=== PATIENT | female | born 1995 | race Caucasian/White ===

== ENCOUNTER 2017-04-22 03:14 | Emergency (ER) | payer OTHER ==
[2017-04-22] MEDS ORDERED: IBUPROFEN 200 MG TAB PO ONE (04:44)
--- NOTE | 2017-04-22 06:26 | EDPHY ---
H & P Stated Complaint: fell, chin lac. Time Seen by Provider: 04/22/17 05:14 HPI/ROS: HPI The patient presents with a fall which occurred just prior to arrival in which she fell forward and hit her chin on a sidewalk. She was drinking alcohol and was somewhat intoxicated. She did not lose consciousness that she is aware of. She has had vomiting. She is complaining of a diffuse achy headache. She is able to move her jaw without any difficulty. She does not have any changes in her vision.. REVIEW OF SYSTEMS Constitutional: No fever, no chills. Eyes: No discharge. ENT: No sore throat. Cardiovascular: No chest pain, no palpitations. Respiratory: No cough, no shortness of breath. Gastrointestinal: No abdominal pain, positive for vomiting. Genitourinary: No hematuria. Musculoskeletal: No back pain. Skin: No rashes. Neurological: Positive for headache. PMHx: Healthy Soc Hx: Visiting from [place], alcohol use PHYSICAL General Appearance: Alert, no distress Eyes: Pupils equal and round no pallor or injection ENT, Mouth: Mucous membranes moist, full range of motion at TMJs, teeth are intact Respiratory: There are no retractions, lungs are clear to auscultation Cardiovascular: Regular rate and rhythm Gastrointestinal: Abdomen is soft and non-tender, no masses, bowel sounds normal Neurological: A&O, moves all extremities Skin: Warm and dry, no rashes, 3 cm gaping laceration to base of chin at midline Musculoskeletal: Neck is supple non tender Extremities: symmetrical, full range of motion Psychiatric: Patient is oriented X 3, there is no agitation Source: Patient Exam Limitations: No limitations - Personal History LMP (Females 10-55): 8-14 Days Ago Current Tetanus/Diphtheria Vaccine: Unsure Current Tetanus Diphtheria and Acellular Pertussis (TDAP): Unsure - Medical/Surgical History Hx Asthma: No Hx Chronic Respiratory Disease: No Hx Diabetes: No Hx Cardiac Disease: No Hx Renal Disease: No Hx Cirrhosis: No Hx Alcoholism: No Hx HIV/AIDS: No Hx Splenectomy or Spleen Trauma: No Other PMH: None stated. - Social History Smoking Status: Never smoked Constitutional: Initial Vital Signs Temperature (C) 36.7 C 04/22/17 03:19 Heart Rate 101 H 04/22/17 03:19 Respiratory Rate 20 04/22/17 03:19 Blood Pressure 138/103 H 04/22/17 03:19 O2 Sat (%) 100 04/22/17 03:19 O2 Delivery Mode Room Air Allergies/Adverse Reactions: Penicillins Allergy (Verified 04/22/17 04:40) Medical Decision Making - Diagnostics Imaging Results: CT scan brain noncontrast is unremarkable, discussed with the radiologist Dr. Narvaez. Imaging: Discussed imaging studies w/ call center director Radiologist Procedures: LACERATION REPAIR Procedure: Laceration repair. Verbal consent was obtained from the patient. The linear 2.5 cm laceration on the chin was anesthetized using lidocaine with epinephrine. The wound was scrubbed, draped and explored to its base with a gloved finger. There were no deep structures involved. No tendon injury was identified. . The wound was repaired with vertical mattress sutures with 5.0 nylon and single deep 4.0 Vicryl. The wound repair was simple. The procedure was performed by myself. Differential Diagnosis: This is a 22-year-old female who presents after a fall while intoxicated. She fell forward, landing on her chin. She is currently complaining of a headache. She is unsure if she lost consciousness. She has had vomiting. Differential diagnosis includes intracranial hemorrhage, concussion, chin laceration, less likely TMJ dislocation. In the emergency department, CT scan of her head was obtained and was unremarkable. She was given ibuprofen for pain. Her laceration was repaired by me after irrigation. She will be discharged home with instructions for wound care. - Data Points Medications Given: Discontinued Medications Ibuprofen (Motrin) 400 mg PO EDNOW ONE Stop: 04/22/17 04:45 Last Admin: 04/22/17 04:48 Dose: 400 mg Departure - Departure Disposition: Home, Routine, Self-Care Clinical Impression: Fall, Headache, Chin laceration Condition: Good Instructions: Facial Laceration (ED) Additional Instructions: Your stitches should be removed in 5-7 days. You can come to the emergency room for this or follow up with your regular doctor. Referrals: NONE *PRIMARY CARE P,. [Primary Care Provider] - As per Instructions
[2017-04-22 07:28] VITALS: BP 114/63; PULSE 88; RESP 16; TEMP 98.4; O2SAT 96
== END 2017-04-22 07:27 | disposition home or self-care (01) ==
PROC: 0HQ1XZZ Repair Face Skin, External Approach (ICD-10-PCS; principal; 2017-04-22)
DX: S01.81XA Laceration without foreign body of other part of head, initial encounter (principal); W18.09XA Striking against other object with subsequent fall, initial encounter